=== PATIENT | female | born 1995 ===

== ENCOUNTER 2021-10-29 12:25 | Inpatient (IN) | payer OTHER ==
[2021-10-29] VITALS (15 sets, daily range): BP systolic 99–172; BP diastolic 57–124
[2021-10-29] MEDS ORDERED: D5 LR IV SOLUTION 1,000 ML IV SCH (14:00)
[2021-10-29] MEDS ORDERED: CATHETER FLUSH 10 ML SYR IV SCH (14:00)
[2021-10-29 14:12] LABS: BASOPHILS # (AUTO) 0.1 10^3/uL (0.0-0.1); BASOPHILS % (AUTO) 1 % (0-10); EOSINOPHILS # (AUTO) 0.4 10^3/uL (0.0-0.3); EOSINOPHILS % (AUTO) 4 % (0-10); HEMATOCRIT 39 % (35-52); HEMOGLOBIN 13.6 g/dL (11.5-16.0); LYMPHOCYTES # (AUTO) 1.4 10^3/uL (1.0-4.0); LYMPHOCYTES % (AUTO) 15 % (12-44); MEAN CORPUSCULAR HEMOGLOBIN 30 pg (25-34); MEAN CORPUSCULAR HGB CONC 35 g/dL (32-36); MEAN CORPUSCULAR VOLUME 87 fL (80-99); MEAN PLATELET VOLUME 11.4 fL (9.0-12.2); MONOCYTES # (AUTO) 0.5 10^3/uL (0.0-1.0); MONOCYTES % (AUTO) 5 % (0-12); NEUTROPHILS # (AUTO) 7.1 10^3/uL (1.8-7.8); NEUTROPHILS % (AUTO) 75 % (42-75); PLATELET COUNT 231 10^3/uL (130-400); WHITE BLOOD COUNT 9.4 10^3/uL (4.3-11.0)
[2021-10-29 14:15] LABS: ALBUMIN 2.8 GM/DL (3.2-4.5)
[2021-10-29 14:17] LABS: CALCIUM 8.4 MG/DL (8.5-10.1)
[2021-10-29 14:20] LABS: BILIRUBIN,TOTAL 0.3 MG/DL (0.1-1.0)
[2021-10-29 14:22] LABS: CREATININE SERUM 0.62 MG/DL (0.60-1.30)
[2021-10-29 14:25] LABS: URIC ACID 5.5 MG/DL (2.6-7.2)
[2021-10-29] MEDS ORDERED: LACTATED RINGERS 1,000 ML IV ONE (14:38)
[2021-10-29] MEDS ORDERED: METOCLOPRAMIDE INJ 10 MG/2 ML (REGLAN) IV ONE (15:00)
[2021-10-29] MEDS ORDERED: CITRIC ACID/SOB CIT (BICITRA) 30 ML UDC PO ONE (15:00)
[2021-10-29] MEDS ORDERED: LACTATED RINGERS 1,000 ML IV PRN (15:00)
[2021-10-29] MEDS ORDERED: FAMOTIDINE 20MG/2ML IV (PEPCID) ONE (15:13)
[2021-10-29] MEDS: KETOROLAC 30 MG/ML VIAL IV SCH ×2 (15:30→20:57)
[2021-10-29] MEDS ORDERED: OXYTOCIN PRE-MIX DRIP 1,000 ML IV ONE (15:31)
[2021-10-29] MEDS ORDERED: KETOROLAC 30 MG/ML VIAL ONE (15:31)
[2021-10-29] MEDS ORDERED: ONDANSETRON 4 MG/2 ML (SDV) Z0FRAN ONE (15:31)
[2021-10-29] MEDS ORDERED: BUPIVACAINE 0.25% 30 ML (SENSORCAINE) VIAL ONE (15:31)
[2021-10-29] MEDS ORDERED: fentaNYL INJ 100 MCG/2 ML AMP ONE (15:31)
[2021-10-29] MEDS ORDERED: CALCIUM GLUC. 10% 4.65 MEQ/10 ML VIAL IV PRN (15:45)
[2021-10-29] MEDS ORDERED: MAGNESIUM 4 GM/100 ML IVPB 100 ML IV SCH (15:45)
[2021-10-29] MEDS ORDERED: ONDANSETRON 4 MG/2 ML (SDV) Z0FRAN IVP PRN (15:45)
[2021-10-29] MEDS ORDERED: NALOXONE 0.4 MG/ML 1 ML (NARCAN) VIAL IV PRN (15:45)
[2021-10-29] MEDS ORDERED: MEASLES,MUMPS,RUBELLA 1 EA INJ SC SCH (15:45)
[2021-10-29] MEDS ORDERED: ceFAZolin 2 GM IV Premixed 50 ML ONE (15:45)
[2021-10-29] MEDS ORDERED: TETANUS,DIPTH,PERTUSS P/F (BOOSTRIX) 0.5 ML VIAL IM SCH (15:45)
[2021-10-29] MEDS ORDERED: IBUP-844 PO (15:53)
[2021-10-29] MEDS ORDERED: DOCU100C37 PO (15:53)
[2021-10-29] MEDS ORDERED: ACHD5005 PO (15:53)
--- NOTE | 2021-10-29 16:02 | History & Physical-OB ---
OB - Chief Complaint & HPI Date/Time Date of Admission: Date of Admission: Oct 29, 2021 at 12:25 Date seen by a Provider: Oct 29, 2021 Time Seen by a Provider: 15:30 Chief Complaint/History OB-Reason for Admission/Chief: Section Hx : 2 Hx Para: 1 Expected Date of Delivery: Nov 07, 2021 Gestational Age in Weeks: 38 Gestational Age in Days: 5 Indication for : desires repeat Other reason for admission: Patient sent from [facility] due to elevated BPs, limited PNC and repeat at 38 weeks. BP in hospital 160s/90s, as well as incomplete workup for GDM with elevated 1 hr GTT, no 3 hr was done. Admission Nurse Assessment Rev: Yes Allergies and Home Medications Allergies Coded Allergies: No Known Drug Allergies (Unverified , 10/29/21) Patient Home Medication List Home Medication List Reviewed: Yes Docusate Sodium (Docusate Sodium) 100 Mg Capsule, 100 MG PO BID PRN for CONSTIPATION-1ST LINE Prescribed by: BEL PEREYRA on 10/29/21 1553 Hydrocodone Bit/Acetaminophen (HYDROcodone/APAP 5 MG/325 MG TAB) 1 Tab Tab, 1-2 EA PO Q6HR PRN for PAIN-MODERATE (5-7) Prescribed by: BEL PEREYRA on 10/29/21 1554 Ibuprofen (Ibu) 600 Mg Tablet, 600 MG PO Q6HR Prescribed by: BEL PEREYRA on 10/29/21 1553 OB - History Hx of Present Care: Yes Ultrasounds: Other (unable to review 20 week scan) Obstetrical Complications: Gestational Diabetes (likely undiagnosed), Gestational Hypertension Medical Complications: None Patient Past Medical History n/a Immunizations Influenza Vaccine Up-to-Date: No; Not Current Hepatitis A: No Hepatitis B: No OB - Admission Exam Physical Exam HEENT: NCAT Heart: Rhythm Normal Lungs: Clear Abdomen: Gravid Extremities: Normal Reflexes: Normal Heart Rate: 130's Accelerations: Accelerations Present Decelerations: No Decelerations Short Term Variability: Present Piano Teacher Variability: Average (6-25) Contractions on Admission: 6-10 Minutes Apart Intensity: Mild Labs Laboratory Tests Test 10/29/21 13:05 Range/Units White Blood Count 9.4 4.3-11.0 10^3/uL Red Blood Count 4.49 3.80-5.11 10^6/uL Hemoglobin 13.6 11.5-16.0 g/dL Hematocrit 39 35-52 % Mean Corpuscular Volume 87 80-99 fL Mean Corpuscular Hemoglobin 30 25-34 pg Mean Corpuscular Hemoglobin Concent 35 32-36 g/dL Red Cell Distribution Width 13.3 10.0-14.5 % Platelet Count 231 130-400 10^3/uL Mean Platelet Volume 11.4 9.0-12.2 fL Immature Granulocyte % (Auto) 1 % Neutrophils (%) (Auto) 75 42-75 % Lymphocytes (%) (Auto) 15 12-44 % Monocytes (%) (Auto) 5 0-12 % Eosinophils (%) (Auto) 4 0-10 % Basophils (%) (Auto) 1 0-10 % Neutrophils # (Auto) 7.1 1.8-7.8 10^3/uL Lymphocytes # (Auto) 1.4 1.0-4.0 10^3/uL Monocytes # (Auto) 0.5 0.0-1.0 10^3/uL Eosinophils # (Auto) 0.4 H 0.0-0.3 10^3/uL Basophils # (Auto) 0.1 0.0-0.1 10^3/uL Immature Granulocyte # (Auto) 0.1 0.0-0.1 10^3/uL Sodium Level 135 135-145 MMOL/L Potassium Level 4.0 3.6-5.0 MMOL/L Chloride Level 108 H 98-107 MMOL/L Carbon Dioxide Level 18 L 21-32 MMOL/L Anion Gap 9 5-14 MMOL/L Blood Urea Nitrogen 8 7-18 MG/DL Creatinine 0.62 0.60-1.30 MG/DL Estimat Glomerular Filtration Rate 117 BUN/Creatinine Ratio 13 Glucose Level 73 70-105 MG/DL Uric Acid 5.5 2.6-7.2 MG/DL Calcium Level 8.4 L 8.5-10.1 MG/DL Corrected Calcium 9.4 8.5-10.1 MG/DL Total Bilirubin 0.3 0.1-1.0 MG/DL Aspartate Amino Transf (AST/SGOT) 20 5-34 U/L Alanine Aminotransferase (ALT/SGPT) 12 0-55 U/L Alkaline Phosphatase 222 H 40-136 U/L Lactate Dehydrogenase 312 H 125-220 U/L Total Protein 6.0 L 6.4-8.2 GM/DL Albumin 2.8 L 3.2-4.5 GM/DL OB - Assessment/Plan/Diagnosis Assessment Assessment: section Admission Dx 26 yo @ 38 weeks Limited PNC GHTN Undiagnosed GDM elevated 1 hr GTT Previous Admission Status: Inpatient Order (span 2 midnights) Reason for Inpatient Admission: Repeat Plan Plan: Section BEL PEREYRA DO Oct 29, 2021 16:01
[2021-10-29 16:52] LABS: URINE CREATININE FOR RATIO 14 MG/DL (30-125)
--- NOTE | 2021-10-29 17:08 | Discharge Inst-Women's Service ---
Discharge Inst-Women's Serv Depart Medication/Instructions New, Converted or Re-Newed RX: Transmitted to Pharmacy Final Diagnosis POD 2 RLTCS GHTN Problems Reviewed?: Yes Consults/Follow Up Additional Follow Up: Yes Orders/Referrals Dr. Gamez/ Mercedes in 7-[address] Lion in 6 weeks Activity Activity: Activity as Tolerated Driving Instructions: No Driving for 1 Week NO SMOKING: NO SMOKING Nothing Inside Vagina: No Douching, No Freeburn, No Tampons Diet Discharge Diet: No Restrictions Symptoms to Report to : Bleeding Excessive, Pain Increased, Fever Over 101 Degrees F, Vaginal Bleeding Increase, Questions/Concerns For Any Problems or Questions: Contact Your Physician Skin/Wound Care Infection Signs and Symptoms: Increased Redness, Foul Odor of Wound, Increased Drainage, Skin Itchy or Has a Rash, Increased Swelling, Temperature Above 101 F Operative Area Clean and Dry: Keep Incision Clean/Dry Stitches/Beatriz/Dermabond: Dermabond, Care of Stitches Bathing Instructions: ShowBEL Oliver DO Oct 29, 2021 17:08
[2021-10-29 17:16] LABS: URINE PROTEIN FOR RATIO ONLY < 6 MG/DL (6-12)
[2021-10-29] MEDS: MAGNESIUM SULFATE DRIP 500 ML IV SCH (17:54)
[2021-10-29] MEDS: HYDROcodone/APAP 5 MG/325 MG (LORTAB) TAB PO PRN (18:59)
[2021-10-29] MEDS: METOCLOPRAMIDE 10 MG (REGLAN) TAB PO SCH (18:59)
[2021-10-29] MEDS: OXYTOCIN PRE-MIX DRIP 500 ML IV SCH ×2 (20:00→22:17)
[2021-10-29] MEDS: LABETALOL 200 MG (NORMODYNE) TAB PO SCH (21:00)
[2021-10-29] MEDS: DOCUSATE SODIUM 100 MG (COLACE) CAP PO SCH (21:00)
[2021-10-29] MEDS: CATHETER FLUSH 10 ML SYR IV SCH (21:10)
[2021-10-30] VITALS (20 sets, daily range): BP systolic 114–158; BP diastolic 76–97
[2021-10-30] MEDS: HYDROcodone/APAP 5 MG/325 MG (LORTAB) TAB PO PRN ×3 (00:11→18:58)
[2021-10-30] MEDS: METOCLOPRAMIDE 10 MG (REGLAN) TAB PO SCH ×4 (00:11→21:51)
--- NOTE | 2021-10-30 00:23 | OPERATIVE REPORT ---
DATE OF SERVICE: PREOPERATIVE DIAGNOSES: 1. A 26-year-old G2, P1 at 38 weeks and 5 days gestation. 2. Previous section. 3. Gestational hypertension. 4. Limited care. POSTOPERATIVE DIAGNOSES: 1. A 26-year-old G2, P1 at 38 weeks and 5 days gestation. 2. Previous section. 3. Gestational hypertension. 4. Limited care. PROCEDURE: Repeat low transverse section. SURGEON: Kota Gamez DO ANESTHESIA: Spinal. ESTIMATED BLOOD LOSS: 300 mL. URINE OUTPUT: 30 mL clear at the end of the procedure. FLUIDS: 1200 mL lactated Ringer's solution. FINDINGS: A live female infant, weight and Apgars pending. Grossly normal appearing uterus, bilateral fallopian tubes and ovaries. SPECIMEN SENT: Placenta. INDICATIONS FOR PROCEDURE: This 26-year-old female I was contacted on today about from Dr. Lion at the [facility]. The patient had last been seen at 23 weeks. She presented to the office for care visit now at 38 and 5 with elevated blood pressures of 160s/100s in the office. The patient had a primary outside of the [place] previously. Otherwise, her has been uncomplicated; however, limited care was offered. She was sent to the hospital for evaluation. Upon arrival to the hospital, blood pressures remained elevated. Due to suspected gestational hypertension as well as suspected undiagnosed gestational diabetes due to an elevated 1-hour with no 3-hour follow up. Decision was made to proceed with delivery at 38 weeks and 5 days gestation. Risks of procedure have been discussed with the patient in detail upon my arrival. After all of her questions were answered, consent was obtained, the patient was taken to the operating room. OPERATIVE REPORT IN DETAIL: Once in the operating room, spinal analgesia was found to be adequate. She was placed in supine position with leftward tilt, prepped and draped in normal sterile fashion. A timeout was performed, and anesthesia was tested, then make a Pfannenstiel skin incision with a knife and carried down to underlying fascia using Bovie cautery. The fascial incision extended laterally using Bovie cautery. Superior aspect of fascial incision was then grasped with Chevy clamps, tented up and dissected off the underlying rectus muscles. The inferior aspect of the fascial incision was then grasped with Chevy clamps, tented up and dissected off the underlying rectus muscles. The rectus muscles were then dissected down the midline using sharp dissection, which exposed the peritoneum, which I entered bluntly and extended using blunt traction. Gallito ring retractor was placed in the peritoneal incision, which offers excellent lateral sidewall retraction. I identified the lower uterine segment, which was found to be thinned out. I made a low transverse incision through the vesicouterine peritoneum and bluntly dissected off the lower uterine segment, creating a bladder flap. I then proceeded with my myotomy until membranes were visualized, at which point I extended the uterine incision laterally and superiorly using bandage scissors. Amniotomy was performed in the process of doing this, clear fluid was noted. The was found in vertex presentation. With gentle fundal pressure, the 's head was elevated up the incision where it was delivered through the incision. The nares and oropharynx were bulb suctioned. Anterior and posterior shoulders were delivered. The infant was then brought to the operative field where the cord was doubly clamped and cut. Infant was handed off to waiting nurses in attendance. Cord blood was collected, 3-vessel cord with intact placenta was delivered spontaneously thereafter. IV Pitocin was initiated to facilitate uterine contraction. Uterine fundus confirmed by manual massage. Uterus was then exteriorized and cleared of all endometrial clots and debris. I then proceeded with closing the uterine incision using 0 Vicryl suture in running locked fashion. Second layer of imbricating 0 Monocryl was placed. Excellent hemostasis was noted after doing this. I then placed the uterus back in the pelvis and copiously irrigated the pelvis using normal saline. Once again, there was no active bleeding noted from any of my dissection planes. I placed Interceed antiadhesive over my low transverse incision. I removed the Gallito ring retractor and then proceeded with closing the peritoneum using 3-0 Vicryl suture in running fashion. The rectus muscle reapproximated using 3-0 Vicryl suture in interrupted fashion. The fascia was reapproximated using 0 Vicryl suture in running fashion. The subcutaneous tissue was reapproximated using 3-0 plain interrupted subcutaneous stitch and skin reapproximated using 4-0 Monocryl running subcuticular. Dermabond was applied to incision and sterile dressing with adhesive white tape. The patient tolerated the procedure well and was taken to recovery area in stable condition. Lap and sponge counts were correct at the end of the procedure. Instrument counts correct as well. Two grams of Ancef were given preoperatively for infection prophylaxis. Job ID: [id number] DocumentID: [id number] Dictated Date: 10/29/2021 17:12:56 Canal Equipment Mechanic Date: 10/30/2021 00:22:58 Dictated By: DO DRU CARDOZO
[2021-10-30] MEDS: D5 LR IV SOLUTION 1,000 ML IV SCH ×2 (01:31→02:18)
[2021-10-30] MEDS: KETOROLAC 30 MG/ML VIAL IV SCH ×2 (02:14→14:18)
[2021-10-30] MEDS: MAGNESIUM SULFATE DRIP 500 ML IV SCH (04:00)
[2021-10-30 06:12] LABS: BASOPHILS # (AUTO) 0.1 10^3/uL (0.0-0.1); BASOPHILS % (AUTO) 0 % (0-10); EOSINOPHILS # (AUTO) 0.4 10^3/uL (0.0-0.3); EOSINOPHILS % (AUTO) 3 % (0-10); HEMATOCRIT 24 % (35-52); LYMPHOCYTES # (AUTO) 2.6 10^3/uL (1.0-4.0); LYMPHOCYTES % (AUTO) 17 % (12-44); MEAN CORPUSCULAR HEMOGLOBIN 30 pg (25-34); MEAN CORPUSCULAR HGB CONC 34 g/dL (32-36); MEAN CORPUSCULAR VOLUME 90 fL (80-99); MEAN PLATELET VOLUME 10.9 fL (9.0-12.2); MONOCYTES # (AUTO) 0.8 10^3/uL (0.0-1.0); MONOCYTES % (AUTO) 5 % (0-12); NEUTROPHILS # (AUTO) 11.5 10^3/uL (1.8-7.8); NEUTROPHILS % (AUTO) 75 % (42-75); PLATELET COUNT 183 10^3/uL (130-400); WHITE BLOOD COUNT 15.4 10^3/uL (4.3-11.0)
[2021-10-30] MEDS: LABETALOL 200 MG (NORMODYNE) TAB PO SCH ×2 (09:00→21:51)
[2021-10-30] MEDS ORDERED: amLODIPine 5 MG (NORVASC) TAB PO SCH (09:00)
[2021-10-30] MEDS: DOCUSATE SODIUM 100 MG (COLACE) CAP PO SCH ×2 (09:00→21:51)
--- NOTE | 2021-10-30 13:00 | Postpartum Progress Note ---
Note Note Day # 1 Subjective: Patient is without complaints. Has not yet ambulated d/t mag infusion going. Output adequate. Tolerating a regular diet without nausea or vomiting. Normal lochia. Pain is well controlled with oral pain medications. Reports feelings of lightheadedness this morning. Objective: Physical Exam: General - Alert and oriented, no apparent distress Abdomen - Soft, appropriately tender to palpation, non-distended, fundus firm at umbilicus; incision c/d/i Extremities - no edema, negative Philip's bilaterally Assessment: Post- day # 1, status post RLTCS. Recovering well, hemodynamically stable Acute blood loss anemia Hypertension Plan: DC Mag infusion Labetolol 200mg PO BID Routine care. Encourage breast feeding. Encourage ambulation. Ferrous sulfate supplementation. Plan for discharge tomorrow Vitals - Labs Vital Signs - I&O Vital Signs Date Time Temp Pulse Resp B/P (MAP) Pulse Ox O2 Delivery O2 Flow Rate FiO2 10/30/21 07:00 77 18 128/79 (95) 98 Room Air 10/30/21 06:00 36.7 76 18 134/91 (105) 100 Room Air 10/30/21 05:00 36.2 69 18 114/83 (93) 98 Room Air 10/30/21 04:00 82 18 123/81 (95) 98 Room Air 10/30/21 03:00 36.0 71 18 125/83 (97) 97 Room Air 10/30/21 02:00 36.6 80 18 129/76 (93) 100 Room Air 10/30/21 01:00 36.6 90 18 123/78 (93) 100 Room Air 10/30/21 00:00 36.7 86 18 132/79 (96) 100 Room Air 10/29/21 23:00 36.4 89 18 142/70 (94) 100 Room Air 10/29/21 22:00 37.4 92 18 130/78 (95) 99 Room Air 10/29/21 20:57 36.8 89 18 126/79 (95) 99 Room Air 10/29/21 20:00 36.7 84 18 99/57 (71) 99 Room Air 10/29/21 18:59 113 18 115/79 (91) Room Air 10/29/21 18:48 Room Air 10/29/21 17:58 36.7 80 18 136/89 (105) 100 Room Air 10/29/21 17:32 36.3 16 148/103 (118) 99 Room Air 10/29/21 17:16 36.1 16 135/98 (110) 99 Room Air 10/29/21 17:01 36.1 16 156/124 (135) 98 Room Air 10/29/21 16:45 36.3 16 125/78 (94) 98 Room Air 10/29/21 15:35 96 18 163/101 (121) Room Air 10/29/21 15:15 37.0 86 18 172/99 (123) 100 Room Air 10/29/21 15:00 75 18 169/101 (123) Room Air 10/29/21 14:40 81 18 169/102 (124) Room Air I & O 10/30/21 07:00 Intake Total 4675 ml Output Total 1365 ml Balance 3310 ml Labs Laboratory Tests 10/29/21 13:05: White Blood Count 9.4, Red Blood Count 4.49, Hemoglobin 13.6, Hematocrit 39, Mean Corpuscular Volume 87, Mean Corpuscular Hemoglobin 30, Mean Corpuscular Hemoglobin Concent 35, Red Cell Distribution Width 13.3, Platelet Count 231, Mean Platelet Volume 11.4, Immature Granulocyte % (Auto) 1, Neutrophils (%) (Auto) 75, Lymphocytes (%) (Auto) 15, Monocytes (%) (Auto) 5, Eosinophils (%) (Auto) 4, Basophils (%) (Auto) 1, Neutrophils # (Auto) 7.1, Lymphocytes # (Auto) 1.4, Monocytes # (Auto) 0.5, Eosinophils # (Auto) 0.4H, Basophils # (Auto) 0.1, Immature Granulocyte # (Auto) 0.1, Sodium Level 135, Potassium Level 4.0, Chloride Level 108H, Carbon Dioxide Level 18L, Anion Gap 9, Blood Urea Nitrogen 8, Creatinine 0.62, Estimat Glomerular Filtration Rate 117, BUN/Creatinine Ratio 13, Glucose Level 73, Uric Acid 5.5, Calcium Level 8.4L, Corrected Calcium 9.4, Magnesium Level 1.7, Total Bilirubin 0.3, Aspartate Amino Transf (AST/SGOT) 20, Alanine Aminotransferase (ALT/SGPT) 12, Alkaline Phosphatase 222H, Lactate Dehyd rogenase 312H, Total Protein 6.0L, Albumin 2.8L 10/29/21 16:26: Urine Protein < 6L, Urine Creatinine 14L, Urine Protein/Creatinine Ratio 10/30/21 05:20: White Blood Count 15.4H, Red Blood Count 2.66L, Hemoglobin 8.0#L, Hematocrit 24L , Mean Corpuscular Volume 90, Mean Corpuscular Hemoglobin 30, Mean Corpuscular Hemoglobin Concent 34, Red Cell Distribution Width 13.3, Platelet Count 183, Mean Platelet Volume 10.9, Immature Granulocyte % (Auto) 1, Neutrophils (%) (Auto) 75, Lymphocytes (%) (Auto) 17, Monocytes (%) (Auto) 5, Eosinophils (%) (Auto) 3, Basophils (%) (Auto) 0, Neutrophils # (Auto) 11.5H, Lymphocytes # (Auto) 2.6, Monocytes # (Auto) 0.8, Eosinophils # (Auto) 0.4H, Basophils # (A uto) 0.1, Immature Granulocyte # (Auto) 0.1, Magnesium Level 7.3#*H CAMPOS ANDERS APRN Oct 30, 2021 13:00
--- NOTE | 2021-10-30 13:56 | Anesthesia-Regional Post-Op ---
Regional Patient Condition Mental Status: Alert, Oriented x3 Circulation: Same as Pre-Op Headache: Absent Sensation: Full Recovery Motor Block: Absent Post Op Complications Complications None Follow Up Care/Instructions Patient Instructions None needed. Anesthesia/Patient Condition Patient is doing well, no complaints, stable vital signs, no apparent adverse anesthesia problems. No complications reported per nursing. HEIDI DOOLEY CRNA Oct 30, 2021 13:56
[2021-10-30] MEDS: IBUPROFEN 600 MG (MOTRIN) TAB PO SCH (21:51)
[2021-10-31 01:30] VITALS: BP 102/68
[2021-10-31] MEDS: CATHETER FLUSH 10 ML SYR IV SCH (01:55)
[2021-10-31 05:35] VITALS: BP 114/77
[2021-10-31] MEDS: METOCLOPRAMIDE 10 MG (REGLAN) TAB PO SCH ×3 (05:35→12:15)
[2021-10-31] MEDS: IBUPROFEN 600 MG (MOTRIN) TAB PO SCH ×3 (05:35→12:16)
[2021-10-31] MEDS: HYDROcodone/APAP 5 MG/325 MG (LORTAB) TAB PO PRN (05:36)
[2021-10-31] MEDS ORDERED: FLU QUADRIvalent (3YOA+) 60 mcg/0.5 ml 2021-22(AFLURIA) IM ONE (07:00)
[2021-10-31] MEDS ORDERED: LABE200T7 PO (08:41)
--- NOTE | 2021-10-31 08:41 | Postpartum Progress Note ---
Note Note Day # 2 Subjective: Patient is without complaints. Ambulating, voiding. Tolerating a regular diet without nausea or vomiting. Normal lochia. Pain is well controlled with oral pain medications. Objective: Physical Exam: General - Alert and oriented, no apparent distress Abdomen - Soft, appropriately tender to palpation, non-distended, fundus firm at umbilicus Extremities - no edema, negative Philip's bilaterally Incision- c/d/i Assessment: POD 2 RLTCS Acute blood loss anemia GHTN- controlled on labetalol Plan: Routine care. Encourage breast feeding. Encourage ambulation. Ferrous sulfate supplementation. Plan for discharge today Vitals - Labs Vital Signs - I&O Vital Signs Date Time Temp Pulse Resp B/P (MAP) Pulse Ox O2 Delivery O2 Flow Rate FiO2 10/31/21 05:35 36.6 75 18 114/77 (89) 96 Room Air 10/31/21 01:30 36.4 68 18 102/68 (79) 96 Room Air 10/30/21 21:49 36.6 82 18 158/96 (116) 96 Room Air 10/30/21 16:00 57 18 120/76 (91) Room Air 10/30/21 15:00 65 18 133/86 (102) Room Air 10/30/21 14:00 36.6 92 18 149/97 (114) Room Air 10/30/21 14:00 87 98 Room Air 10/30/21 13:00 72 18 135/95 (108) Room Air 10/30/21 12:00 61 18 132/85 (101) Room Air 10/30/21 11:00 75 18 131/92 (105) Room Air 10/30/21 10:00 75 18 123/77 (92) Room Air 10/30/21 09:53 37.0 90 18 140/81 (100) 98 Room Air 10/30/21 09:00 86 18 140/88 (105) Room Air I & O 10/31/21 07:00 Intake Total 2500 ml Output Total 5450 ml Balance -2950 ml BEL EPREYRA DO Oct 31, 2021 08:41
[2021-10-31] MEDS ORDERED: FERR325T18 PO (08:45)
[2021-10-31 08:51] VITALS: BP 143/91
[2021-10-31] MEDS: LABETALOL 200 MG (NORMODYNE) TAB PO SCH (09:05)
[2021-10-31] MEDS: DOCUSATE SODIUM 100 MG (COLACE) CAP PO SCH (09:05)
[2021-10-31] MEDS ORDERED: FERROUS SULF 325 MG (IRON) TAB PO SCH (13:00)
== END 2021-10-31 16:25 | disposition home or self-care (01) | DRG 787 ==
LOC: LDRP 12:25
PROVIDERS: ADMIT Obstetrics & Gynecology; ATTEND Obstetrics & Gynecology
PROC: 10D00Z1 Extraction of Products of Conception, Low, Open Approach (ICD-10-PCS; principal; 2021-10-29 15:43)
DX: O34.211 Maternal care for low transverse scar from previous cesarean delivery (principal); D62 Acute posthemorrhagic anemia; Z3A.38 38 weeks gestation of pregnancy; Z37.0 Single live birth; O24.429 Gestational diabetes mellitus in childbirth, unspecified control; O13.4 Gestational [pregnancy-induced] hypertension without significant proteinuria, complicating childbirth; O90.81 Anemia of the puerperium
CPT/HCPCS: 36415; 80053; 82570; 83615; 83735; 84156; 84550; 85025; 86850; 86900; 86901; 90715; 94664